=== PATIENT | male | born 1950 | race African-American/Black ===

== ENCOUNTER 2016-08-29 22:49 | Emergency (ER) | payer OTHER ==
[~2016-08-29] VITALS: Ht 167.6 cm; Wt 75.5 kg
[~2016-08-29 22:49] MED LIST: ALLOPURINOL100 MG PO; ASPIRIN325 MG PO; ASPIRIN81 M1 PO; BACTRIM,SEPT1 TABLE1 PO; COLACE100 MG PO; COLCRYS0.6 MG PO; Colace PO; Dextrose 10% in Wate IV; Dextrose 50% in Wate IV; ECOTRIN325 MG PO; Ecotrin PO; Feosol PO; GLUCAGEN1 MG IM/SC; Heparin IV; Imdur PO; K-DUR10 MEQ PO; KEPPRA500 MG PO; LASIX40 MG PO; LEVETIRACETAM500 MG PO; LISINOPRIL20 MG PO; LISINOPRIL5 MG PO; Lopressor PO; METOPROLOL TART50 MG PO; NOHOMEMEDS; NOVOLOG PE100 UNITS/ SC; Normal Saline,NaCl 0 IV; PERCOCET 5/31 TABLET PO; PLAVIX75 MG PO; PRAVASTATIN SOD40 MG; PROVENTIL HFA6.7 GM IH; Percocet 5/325,Endoc PO; Pravachol PO; Protonix PO; SALINE FLUSH 5 M5 ML IV; SIMVASTATIN20 MG PO; SIMVASTATIN40 MG PO; TENORMIN25 MG PO; TYLENOL REGULA325 MG PO; VITAMIN B-12250 MCG PO; Vitamin B-12 PO; ZANTAC150 MG PO; ZESTORETIC 20-1 EAC1 PO; Zofran IV
[2016-08-30 00:36] VITALS: BP 128/76
== END 2016-08-30 00:45 | disposition home or self-care (01) ==
LOC: EME 22:49
PROC: 0VNTXZZ Release Prepuce, External Approach (ICD-10-PCS; principal; 2016-08-29)
DX: N47.2 Paraphimosis (principal)
CPT/HCPCS: 99281; 99284

== ENCOUNTER 2017-05-19 21:28 | Emergency (ER) | payer OTHER ==
[~2017-05-19] VITALS: Ht 167.6 cm; Wt 70.4 kg
[2017-05-19] MEDS ORDERED: MOTRIN800 MG PO (22:20)
[2017-05-19] MEDS ORDERED: NORCO 7.5/321 TABLET PO (22:20)
[2017-05-19 22:56] VITALS: BP 116/78
== END 2017-05-19 22:57 | disposition home or self-care (01) ==
LOC: EME 21:28
DX: M75.21 Bicipital tendinitis, right shoulder (principal); M75.01 Adhesive capsulitis of right shoulder; E11.9 Type 2 diabetes mellitus without complications; I10 Essential (primary) hypertension; E78.5 Hyperlipidemia, unspecified; Z95.1 Presence of aortocoronary bypass graft
CPT/HCPCS: 99281; 99284

== ENCOUNTER 2017-06-19 08:29 | Emergency (ER) | payer OTHER ==
[~2017-06-19] VITALS: Ht 167.6 cm; Wt 70.0 kg
[~2017-06-19 08:29] MED LIST changes: +MOTRIN800 MG PO; +NORCO 7.5/321 TABLET PO
[2017-06-19] MEDS ORDERED: COLCRYS0.6 MG PO (10:07)
[2017-06-19] MEDS ORDERED: ALLOPURINOL100 MG PO (10:10)
[2017-06-19 10:29] VITALS: BP 110/67
== END 2017-06-19 10:30 | disposition home or self-care (01) ==
LOC: EME 08:29
DX: M10.9 Gout, unspecified (principal); M21.611 Bunion of right foot; M77.31 Calcaneal spur, right foot; M20.11 Hallux valgus (acquired), right foot; Z95.1 Presence of aortocoronary bypass graft
CPT/HCPCS: 73630; 99281; 99284

== ENCOUNTER 2017-07-27 22:31 | Emergency (ER) | payer OTHER ==
[~2017-07-27] VITALS: Ht 167.6 cm; Wt 70.0 kg
[2017-07-28] MEDS ORDERED: INDOCIN50 MG PO (01:31)
[2017-07-28] MEDS ORDERED: NORCO 5/3251 TABLET PO (01:31)
[2017-07-28 02:15] VITALS: BP 119/65
== END 2017-07-28 02:15 | disposition home or self-care (01) ==
LOC: EME 22:31
DX: M10.9 Gout, unspecified (principal); M25.562 Pain in left knee; I25.2 Old myocardial infarction; I11.0 Hypertensive heart disease with heart failure; I50.9 Heart failure, unspecified; E78.5 Hyperlipidemia, unspecified; Z95.1 Presence of aortocoronary bypass graft; K21.9 Gastro-esophageal reflux disease without esophagitis; Z86.69 Personal history of other diseases of the nervous system and sense organs
CPT/HCPCS: 73564; 99281; 99284

== ENCOUNTER 2017-09-14 01:02 | Inpatient (IN) | payer OTHER ==
[~2017-09-14] VITALS: Ht 167.6 cm; Wt 67.4 kg
[~2017-09-14 01:02] MED LIST changes: +INDOCIN50 MG PO; +NORCO 5/3251 TABLET PO
[2017-09-14 01:44] LABS: HEMOGLOBIN 13.8 G/DL (12.5-16.6); MCHC 34.5 G/DL (30.0-36.0); MCV 92.8 FL (86-99); PLATELET COUNT 171 K/uL (156-360); RBC DIS.WIDTH-CV 15.5 % (11.8-14.6); RED BLOOD COUNT 4.31 M/uL (4.00-5.50); WHITE BLOOD COUNT 3.6 K/uL (4.1-10.2)
[2017-09-14 01:57] LABS: ALBUMIN 3.8 g/dL (3.2-4.8); CHLORIDE 106 mEq/L (99-109); POTASSIUM 3.5 mEq/L (3.7-5.4); SODIUM 141 mEq/L (136-147)
[2017-09-14 01:59] LABS: GLUCOSE 110 mg/dL (70-99); TOTAL PROTEIN 6.8 g/dL (6.4-8.3)
[2017-09-14 02:03] LABS: ALKALINE PHOSPHATASE 286 IU/L (3-129); CREATININE 1.4 mg/dL (0.6-1.3); GFR ESTIMATE (CALCULATED) > 59 mL/min/ (58.99-99999)
[2017-09-14 02:04] LABS: AST (GOT) 48 IU/L (2-34); UREA NITROGEN (BUN) 24 mg/dL (9-23)
[2017-09-14 02:06] LABS: ALT (GPT) 24 IU/L (3-49)
[2017-09-14 03:17] LABS: APPEARANCE CLEAR ((CLEAR)); BILIRUBIN NEGATIVE; BLOOD NEGATIVE; COLOR YELLOW ((YELLOW)); GLUCOSE (STRIP) NEGATIVE; KETONES NEGATIVE; LEUKOCYTES NEGATIVE; NITRITE NEGATIVE; PROTEIN (STRIP) NEGATIVE; SPECIFIC GRAVITY 1.009 (1.000-1.030); UCUL ADDED? NO; UROBILINOGEN 0.2 MG/DL (0.2-1.0)
[2017-09-14 07:32] LABS: TROP-I INTERPRETATION NEGATIVE; TROPONIN-I < 0.01 ng/mL (0.0-0.30)
[2017-09-14 07:51] VITALS: BP 137/94
[2017-09-14 11:12] VITALS: BP 126/69
[2017-09-14] MEDS ORDERED: COLCRYS0.6 MG PO (11:32)
[2017-09-14] MEDS ORDERED: LIPITOR80 MG PO (11:33)
[2017-09-14] MEDS ORDERED: ZYLOPRIM100 MG PO (11:33)
[2017-09-14] MEDS ORDERED: VENTOLIN HFA18 GM IH (11:33)
[2017-09-14] MEDS ORDERED: TOPROL XL200 MG PO (11:34)
[2017-09-14] MEDS ORDERED: LASIX20 MG PO (11:34)
[2017-09-14] MEDS ORDERED: COZAAR25 MG PO (11:34)
[2017-09-14] MEDS ORDERED: K-DUR20 MEQ PO (11:35)
[2017-09-14] MEDS ORDERED: TYLENOL EXTRA500 MG PO (11:35)
[2017-09-14 13:27] LABS: TROP-I INTERPRETATION NEGATIVE; TROPONIN-I < 0.01 ng/mL (0.0-0.30)
[2017-09-14 16:04] LABS: CHLORIDE 101 MEQ/L (99-109); POTASSIUM 3.5 MEQ/L (3.7-5.4); SODIUM 141 MEQ/L (136-147)
[2017-09-14 16:10] LABS: CREATININE 1.2 MG/DL (0.6-1.3); GFR ESTIMATE (CALCULATED) > 59 mL/min/ (58.99-99999); GLUCOSE 132 mg/dL (70-99); UREA NITROGEN (BUN) 20 mg/dL (9-23)
[2017-09-14 16:22] VITALS: BP 145/98
[2017-09-14 19:36] VITALS: BP 123/78
[2017-09-14 23:47] VITALS: BP 125/74
[2017-09-15 04:16] VITALS: BP 148/86
[2017-09-15 05:30] LABS: HEMATOCRIT 47.1 % (38.0-50.0); HEMOGLOBIN 15.5 G/DL (12.5-16.6); MCH 30.7 PG (29.0-34.0); MCHC 32.9 G/DL (30.0-36.0); MCV 93.3 FL (86-99); PLATELET COUNT 162 K/uL (156-360); RBC DIS.WIDTH-CV 15.1 % (11.8-14.6); RBC DIS.WIDTH-SD 51.8 % (39-53); RED BLOOD COUNT 5.05 M/uL (4.00-5.50)
[2017-09-15 05:56] LABS: ALKALINE PHOSPHATASE 248 IU/L (3-129); ALT (GPT) 20 IU/L (3-49); AST (GOT) 40 IU/L (2-34); CHLORIDE 102 MEQ/L (99-109); CREATININE 1.1 MG/DL (0.6-1.3); GFR ESTIMATE (CALCULATED) > 59 mL/min/ (58.99-99999); GLUCOSE 112 mg/dL (70-99); POTASSIUM 4.1 MEQ/L (3.7-5.4); SODIUM 140 MEQ/L (136-147); TOTAL BILIRUBIN 2.7 MG/DL (0.0-1.0); TOTAL PROTEIN 7.1 G/DL (6.4-8.3); UREA NITROGEN (BUN) 22 mg/dL (9-23)
[2017-09-15 11:53] VITALS: BP 121/81
[2017-09-15 16:00] VITALS: BP 94/63
[2017-09-15 20:03] VITALS: BP 115/78
[2017-09-15 23:49] VITALS: BP 117/84
[2017-09-16 05:00] LABS: BASOPHIL (%) 0 % (0-1); EOSINOPHIL (%) 0 % (0-5); HEMATOCRIT 43.6 % (38.0-50.0); HEMOGLOBIN 15.1 G/DL (12.5-16.6); IMMATURE GRANULOCYTE (%) 1.6 % (0.0-0.7); LYMPHOCYTE (%) 5.1 % (15-42); LYMPHOCYTE COUNT 0.4 K/uL (1.0-2.8); MCH 31.7 PG (29.0-34.0); MCHC 34.6 G/DL (30.0-36.0); MCV 91.4 FL (86-99); MONOCYTE (%) 9.6 % (3-12); MONOCYTE COUNT 0.8 K/uL (0-0.8); NEUTROPHIL (%) 83.7 % (45-76); PLATELET COUNT 172 K/uL (156-360); RBC DIS.WIDTH-CV 15.1 % (11.8-14.6); RBC DIS.WIDTH-SD 50.5 % (39-53); RED BLOOD COUNT 4.77 M/uL (4.00-5.50); WHITE BLOOD COUNT 8.4 K/uL (4.1-10.2)
[2017-09-16 05:18] LABS: CHLORIDE 104 mEq/L (99-109); POTASSIUM 4.1 mEq/L (3.7-5.4); SODIUM 142 mEq/L (136-147)
[2017-09-16 05:20] LABS: GLUCOSE 99 mg/dL (70-99)
[2017-09-16 05:24] LABS: CREATININE 1.2 mg/dL (0.6-1.3); GFR ESTIMATE (CALCULATED) > 59 mL/min/ (58.99-99999)
[2017-09-16 05:25] LABS: UREA NITROGEN (BUN) 28 mg/dL (9-23)
[2017-09-16 07:25] VITALS: BP 141/93
[2017-09-16 11:51] VITALS: BP 115/81
[2017-09-16 17:13] VITALS: BP 153/95
[2017-09-16 19:16] VITALS: BP 127/94
[2017-09-16 23:58] VITALS: BP 119/87
[2017-09-17 03:36] VITALS: BP 133/96
[2017-09-17 04:53] LABS: BASOPHIL (%) 0.1 % (0-1); EOSINOPHIL (%) 0 % (0-5); HEMATOCRIT 46.4 % (38.0-50.0); HEMOGLOBIN 15.9 G/DL (12.5-16.6); IMMATURE GRANULOCYTE (%) 1.8 % (0.0-0.7); LYMPHOCYTE (%) 5.4 % (15-42); LYMPHOCYTE COUNT 0.4 K/uL (1.0-2.8); MCH 31.7 PG (29.0-34.0); MCHC 34.3 G/DL (30.0-36.0); MCV 92.4 FL (86-99); MONOCYTE (%) 13.3 % (3-12); NEUTROPHIL (%) 79.4 % (45-76); PLATELET COUNT 162 K/uL (156-360); RBC DIS.WIDTH-CV 15.5 % (11.8-14.6); RED BLOOD COUNT 5.02 M/uL (4.00-5.50); WHITE BLOOD COUNT 7.6 K/uL (4.1-10.2)
[2017-09-17 05:06] LABS: ALBUMIN 3.8 g/dL (3.2-4.8); CHLORIDE 103 mEq/L (99-109); POTASSIUM 4.3 mEq/L (3.7-5.4); SODIUM 144 mEq/L (136-147)
[2017-09-17 05:09] LABS: GLUCOSE 91 mg/dL (70-99); TOTAL PROTEIN 7.3 g/dL (6.4-8.3)
[2017-09-17 05:11] LABS: TOTAL BILIRUBIN 2.1 mg/dL (0.0-1.0)
[2017-09-17 05:12] LABS: ALKALINE PHOSPHATASE 285 IU/L (3-129); CREATININE 1.2 mg/dL (0.6-1.3); GFR ESTIMATE (CALCULATED) > 59 mL/min/ (58.99-99999)
[2017-09-17 05:13] LABS: UREA NITROGEN (BUN) 29 mg/dL (9-23)
[2017-09-17 05:14] LABS: AST (GOT) 44 IU/L (2-34)
[2017-09-17 05:15] LABS: ALT (GPT) 27 IU/L (3-49)
[2017-09-17 08:45] VITALS: BP 139/82
[2017-09-17 11:15] VITALS: BP 120/77
[2017-09-17] MEDS ORDERED: METOPROLOL SUCC50 MG PO (11:40)
[2017-09-17] MEDS ORDERED: PREDNISONE10 MG PO (11:42)
== END 2017-09-17 19:43 | disposition home or self-care (01) | DRG 292 ==
LOC: EME 01:02 → 4SOUTH 04:33 → EDOF 04:33 → ENRESERV 04:41 → 4SOUTH 07:28
PROVIDERS: Internal Medicine; Physician Assistant Medical
DX: I50.33 Acute on chronic diastolic (congestive) heart failure (principal); I13.0 Hypertensive heart and chronic kidney disease with heart failure and stage 1 through stage 4 chronic kidney disease, or unspecified chronic kidney disease; J98.11 Atelectasis; R17 Unspecified jaundice; K80.00 Calculus of gallbladder with acute cholecystitis without obstruction; Z66 Do not resuscitate; N18.9 Chronic kidney disease, unspecified; I27.20 Pulmonary hypertension, unspecified; E78.5 Hyperlipidemia, unspecified; E87.6 Hypokalemia; I25.10 Atherosclerotic heart disease of native coronary artery without angina pectoris; K21.9 Gastro-esophageal reflux disease without esophagitis; M10.9 Gout, unspecified; R56.9 Unspecified convulsions; R53.1 Weakness; I25.2 Old myocardial infarction; Z95.1 Presence of aortocoronary bypass graft; Z87.891 Personal history of nicotine dependence; Z82.49 Family history of ischemic heart disease and other diseases of the circulatory system
CPT/HCPCS: 71045; 71046; 74018; 76705; 78226; 80048; 80048 91; 80053; 81003; 82948; 83880; 84484; 85025; 85027; 93306; 94799; 99281; 99285; A9537; G0378; J1644; J1940; J7512